=== PATIENT | female | born 1995 | race Caucasian/White ===

== ENCOUNTER 2021-03-31 11:54 | Emergency (ER) | payer OTHER ==
[~2021-03-31] VITALS: Ht 167.6 cm; Wt 83.5 kg
[2021-03-31] MEDS ORDERED: LEXAPRO20 MG PO (12:12)
[2021-03-31] MEDS ORDERED: LITHATE5 MG (12:13)
== END 2021-03-31 16:17 | disposition home or self-care (01) ==
LOC: ER 11:54
DX: R55 Syncope and collapse (principal); F15.10 Other stimulant abuse, uncomplicated; Z11.52 Encounter for screening for COVID-19

== ENCOUNTER 2024-02-17 19:04 | Emergency (ER) | payer OTHER ==
[~2024-02-17] VITALS: Ht 167.6 cm; Wt 86.2 kg
[~2024-02-17 19:04] MED LIST: LEXAPRO20 MG PO; LITHATE5 MG
[2024-02-17 21:09] LABS: HEMATOCRIT 40.3 % (36.0-45.00); HEMOGLOBIN 13.3 g/dL (12.0-15.00); MEAN CELL VOLUME 84.6 fL (80.00-100.00); MEAN CORPUSCULAR HGB CONC 33.1 g/dl (32.0-36.0); PLATELET COUNT 275 K/uL (150-450); RED BLOOD COUNT 4.76 M/uL (4.00-6.00); RED CELL DISTRIBUTION WIDTH 14.1 % (11.5-14.5)
[2024-02-17 21:37] LABS: INR 1.12; PROTHROMBIN TIME 11.7 SECONDS (9.0-11.5)
[2024-02-17 21:40] LABS: CALCIUM 9.3 mg/dL (8.5-10.1); CREATININE SERUM 0.65 mg/dL (0.55-1.02); GFR 109.34; POTASSIUM 4.45 mEq/L (3.5-5.1)
== END 2024-02-18 01:53 | disposition home or self-care (01) ==
LOC: ER 19:04
PROVIDERS: Emergency Medicine
DX: K62.5 Hemorrhage of anus and rectum (principal)